=== PATIENT | female | born 1985 | race Caucasian/White ===

== ENCOUNTER 2016-06-29 20:30 | Emergency (ER) | payer SELFPAY ==
[~2016-06-29 20:30] MED LIST: AMOXICILLIN500 M PO; CLINDAMYCIN TOP; KETOCONAZOLE120 ML TP; NO MEDS; NORCO 5/325 TAB1 TAB PO; [UNRECOGNIZED DRUG - MIXTURE] TOP; [UNRECOGNIZED DRUG - OTHER] TOP
== END 2016-06-29 21:00 | disposition left against medical advice (07) ==
LOC: EDMED 20:30
DX: Z53.21 Procedure and treatment not carried out due to patient leaving prior to being seen by health care provider (principal)